=== PATIENT | male | born 1960 | race Caucasian/White ===

== ENCOUNTER 2022-12-24 12:40 | Inpatient (IN) | payer OTHER, MEDICARE ==
[~2022-12-24] VITALS: Ht 167.6 cm; Wt 66.0 kg
[2022-12-24 13:34] LABS: BASOPHILS ABSOLUTE AUTO 0.07 K/mm3 (0.00-0.23); BASOPHILS PERCENT AUTO 1 % (0-2); EOSINOPHILS ABSOLUTE AUTO 0.45 K/mm3 (0.00-0.68); EOSINOPHILS PERCENT AUTO 4 % (0-6); Hematocrit 37.1 % (37.0-53.0); Hemoglobin 12.2 g/dL (13.5-17.5); IMMATURE GRAN ABSOLUTE AUTO 0.06 K/mm3 (0.00-0.10); IMMATURE GRAN PERCENT AUTO 1 % (0-1); LYMPHOCYTES ABSOLUTE AUTO 1.94 K/mm3 (0.84-5.20); LYMPHOCYTES PERCENT AUTO 18 % (21-46); MONOCYTES ABSOLUTE AUTO 0.73 K/mm3 (0.16-1.47); MONOCYTES PERCENT AUTO 7 % (4-13); Mean Corpuscular HGB Conc 32.9 g/dL (31.5-36.5); Mean Corpuscular Volume 97 fL (80-100); NEUTROPHILS ABSOLUTE AUTO 7.28 K/mm3 (1.96-9.15); NEUTROPHILS PERCENT AUTO 69 % (41-73); Platelet Count 126 K/mm3 (150-400); RDW Coefficient Variation 13.3 % (11.7-14.2); RDW Standard Deviation 46.9 fL (35.1-46.3); Red Blood Cell Count 3.81 M/mm3 (4.30-5.90); White Blood Cell Count 10.53 K/mm3 (4.00-11.30)
[2022-12-24 13:53] LABS: Alanine Aminotransfer (ALT/SGP 58 U/L (12-78); Albumin, Blood 3.1 g/dL (3.4-5.0); Albumin/Globulin Ratio 0.7 (0.8-1.8); Alk Phos 138 U/L (50-136); Anion Gap 3 mmol/L (6-16); Aspartate Aminotrans (AST/SGOT 190 U/L (12-37); Bilirubin, Total 1.4 mg/dL (0.1-1.0); Blood Urea Nitrogen 10 mg/dL (8-24); Bun/Creatinine Ratio 18.8 (12.0-20.0); CO2, Blood 32 mmol/L (21-32); Calcium, Blood 10.1 mg/dL (8.5-10.1); Chloride, Blood 100 mmol/L (98-108); Creatinine, Blood 0.53 mg/dL (0.60-1.20); Ethanol (Alcohol), Blood, Med <3 mg/dL; Globulin, Blood 4.5 g/dL (2.2-4.0); Glomerular Filtration Rate 115 (60-); Glucose, Blood 121 mg/dL (70-99); Potassium, Blood 3.2 mmol/L (3.5-5.5); Sodium, Blood 135 mmol/L (136-145); Total Protein, Blood 7.6 g/dL (6.4-8.2)
[2022-12-24 20:31] VITALS: BP 138/101
--- NOTE | 2022-12-24 21:09 | NUR ---
TRANSFER NOTE/ASSUMPTION OF CARE THIS RN RECEIVED REPORT FROM BETO LINO IN THE ED VIA PHONE. PATIENT TRANSFERRED TO UNIT AT 2030. PATIENT TRANSFERRED FROM [facility] TO BED BY STAFF ASSISTANCE D/T WEAKNESS AND PREVIOUS FALL IN THE BATHROOM OF THE ED. PATIENT NOTED TO BE MILDLY ANXIOUS, WITH REPORTED VISUAL HALLUCINATIONS THAT ARE MILD, TREMORS NOTED; MEDICATED WITH 50 OF LIBRIUM. PATIENT ALERT AND ORIENTED AND ABLE TO MAKE NEEDS KNOWN. VITALS STABLE. BED IN LOWEST POSITION AND CALL LIGHT WITHIN REACH, BED ALARM ON
[2022-12-24 23:05] VITALS: BP 128/90
[2022-12-25 03:44] VITALS: BP 131/88
[2022-12-25 04:08] LABS: BASOPHILS PERCENT AUTO 1 % (0-2); EOSINOPHILS ABSOLUTE AUTO 0.43 K/mm3 (0.00-0.68); EOSINOPHILS PERCENT AUTO 4 % (0-6); Hematocrit 32.4 % (37.0-53.0); Hemoglobin 10.7 g/dL (13.5-17.5); IMMATURE GRAN ABSOLUTE AUTO 0.04 K/mm3 (0.00-0.10); IMMATURE GRAN PERCENT AUTO 0 % (0-1); LYMPHOCYTES ABSOLUTE AUTO 2.02 K/mm3 (0.84-5.20); LYMPHOCYTES PERCENT AUTO 19 % (21-46); MONOCYTES ABSOLUTE AUTO 0.82 K/mm3 (0.16-1.47); MONOCYTES PERCENT AUTO 8 % (4-13); Mean Corpuscular HGB 31.6 pg (26.0-34.0); Mean Corpuscular Volume 96 fL (80-100); Mean Platelet Volume 11.5 fL (9.1-12.4); NEUTROPHILS ABSOLUTE AUTO 7.15 K/mm3 (1.96-9.15); NEUTROPHILS PERCENT AUTO 68 % (41-73); Platelet Count 132 K/mm3 (150-400); RDW Coefficient Variation 13.2 % (11.7-14.2); RDW Standard Deviation 45.8 fL (35.1-46.3); Red Blood Cell Count 3.39 M/mm3 (4.30-5.90); White Blood Cell Count 10.56 K/mm3 (4.00-11.30)
[2022-12-25 04:33] LABS: Albumin, Blood 2.8 g/dL (3.4-5.0); Albumin/Globulin Ratio 0.7 (0.8-1.8); Bilirubin, Total 1.3 mg/dL (0.1-1.0); Bun/Creatinine Ratio 11.2 (12.0-20.0); Calcium, Blood 8.5 mg/dL (8.5-10.1); Creatinine, Blood 0.45 mg/dL (0.60-1.20); Globulin, Blood 3.9 g/dL (2.2-4.0); Magnesium, Blood 1.6 mg/dL (1.6-2.4); Potassium, Blood 3.2 mmol/L (3.5-5.5); Total Protein, Blood 6.7 g/dL (6.4-8.2)
--- NOTE | 2022-12-25 04:57 | NUR ---
SHIFT SUMMARY PATIENT CONTINUES TO BE RESTLESS THROUGHOUT THIS SHIFT. ALERT AND ORIENTED 2-3. CONFUSED ABOUT LOCATION AND DATE/TIME AT TIMES. PATIENT WITH CIWA'S OF 8-12 THROUGHOUT THIS SHIFT. REPORTING MILD VISUAL HALLUCINATIONS. NOTED TREMORS. ANXIETY/AGITATION AT TIMES. DISORIENTED AT TIMES. COOPERATIVE WITH CARE. FOLLOWING DIRECTIONS. MEDICATING PER EMAR FOR CIWA'S. SEE EMAR. BED ALARM ON. FREQUENT CHECKS FOR SAFETY. SR/ST ON MONITOR WITH HR 90-100'S. OTHER VITALS STABLE. BED ALARM ON. BED IN LOWEST POSITION AND CALL LIGHT WITHIN REACH. THIS RN WILL CONTINUE TO MONITOR UNTIL SHIFT CHANGE AT 0700.
[2022-12-25 07:55] VITALS: BP 130/85
[2022-12-25 12:12] VITALS: BP 124/82
[2022-12-25 15:17] VITALS: BP 127/88
--- NOTE | 2022-12-25 17:00 | NUR ---
SHIFT SUMMARY This Rn assumed care at 0700. vital signs stable throughout this Rn's shift. tele sinus rhythm 80-100s. patient is alert, oriented to self. this rn has reoriented the patient to correct date, location, place, and situation throughout this shift. patient reports no chest pain/pressure. patient reports no pain. patient reports no shortness of breath. see shift assessment for further detials. patient pulled IV at start of shift and new IV placed. patient placed on oxygen at 2l nc, due to patient oxygen saturations staying at 88%. oxygen placed at 1650. MD Barrientos notified and order placed. see orders ciwa has been between 6-15, and has been reassessed every two hours and as needed. medicated as needed. patient takes medications with applesauce or pudding best, and does better without a straw. Plan of care is up to date. call light within reach and bed in lowest position with alarm on.
[2022-12-25 19:58] VITALS: BP 130/82
--- NOTE | 2022-12-25 21:26 | NUR ---
ASSUMPTION OF CARE THIS RN ASSUMED CARE OF PATIENT AT 1900. REPORT TAKEN FROM JOHNNA LINO. PATIENT SLEEPING AT TIME OF SHIFT CHANGE. PATIENT WOKE UP AROUND 1999 AND WAS ABLE TO TAKE MEDICATIONS AND ANSWER QUESTIONS. CIWA 9 AT THAT TIME; SEE ASSESSMENT. MEDICATED PER EMAR. BP STABLE. PLACED ON 2L VIA NC D/T DESATTING TO 88-89% ON RA WHILE SLEEPING. AFEBRILE. SR/ST ON MONITOR WITH HR 80-100'S. CONDOM CATHETER IN PLACE AND DRAINING TO GRAVITY. PPP. CURRENTLY PATIENT APPEARS TO BE RESTING WITH CIWA OF 5 AT TIME OF WRITING THIS NOTE; SEE ASSESSMENT. PATIENT ABLE TO BE AROUSED BY PHYSICAL/VERBAL STIMULI. LETHARGIC AT TIMES. BED ALARM ON. PATIENT WEAK THROUGHOUT. REPOSITIONING Q2HRS. BED IN LOWEST POSITION AND CALL LIGHT WITHIN REACH.
[2022-12-25 23:04] VITALS: BP 129/82
[2022-12-26 04:14] VITALS: BP 116/81
[2022-12-26 04:25] LABS: BASOPHILS ABSOLUTE AUTO 0.13 K/mm3 (0.00-0.23); BASOPHILS PERCENT AUTO 1 % (0-2); EOSINOPHILS ABSOLUTE AUTO 0.47 K/mm3 (0.00-0.68); EOSINOPHILS PERCENT AUTO 4 % (0-6); Hematocrit 35.5 % (37.0-53.0); Hemoglobin 11.7 g/dL (13.5-17.5); IMMATURE GRAN ABSOLUTE AUTO 0.04 K/mm3 (0.00-0.10); IMMATURE GRAN PERCENT AUTO 0 % (0-1); LYMPHOCYTES PERCENT AUTO 17 % (21-46); MONOCYTES ABSOLUTE AUTO 1.27 K/mm3 (0.16-1.47); MONOCYTES PERCENT AUTO 11 % (4-13); Mean Corpuscular HGB 31.8 pg (26.0-34.0); Mean Corpuscular Volume 97 fL (80-100); Mean Platelet Volume 10.9 fL (9.1-12.4); NEUTROPHILS ABSOLUTE AUTO 7.86 K/mm3 (1.96-9.15); NEUTROPHILS PERCENT AUTO 67 % (41-73); Platelet Count 165 K/mm3 (150-400); RDW Coefficient Variation 13.5 % (11.7-14.2); RDW Standard Deviation 47.8 fL (35.1-46.3); Red Blood Cell Count 3.68 M/mm3 (4.30-5.90); White Blood Cell Count 11.77 K/mm3 (4.00-11.30)
[2022-12-26 04:49] LABS: Albumin, Blood 2.8 g/dL (3.4-5.0); Albumin/Globulin Ratio 0.7 (0.8-1.8); Bilirubin, Total 1.1 mg/dL (0.1-1.0); Bun/Creatinine Ratio 3.7 (12.0-20.0); Calcium, Blood 8.8 mg/dL (8.5-10.1); Creatinine, Blood 0.54 mg/dL (0.60-1.20); Globulin, Blood 4.2 g/dL (2.2-4.0); Potassium, Blood 3.4 mmol/L (3.5-5.5)
--- NOTE | 2022-12-26 05:00 | NUR ---
SHIFT SUMMARY PATIENT WITH CIWA'S 11-12 AT TIMES BUT HAS BEEN RESTING COMFORTABLY FOR MOST OF THE NIGHT WITH NOTED LESS NEED FOR MEDICATIONS THAN PREVIOUS NIGHT WITH THIS RN. PATIENT IS LETHARGIC FOR MOST OF THE SHIFT BUT ABLE TO BE AROUSED WITH VERBAL STIMULI. PATIENT AT TIMES CAN ANSWER ORIENTATION QUESTIONS APPROPRIATELY BUT AT OTHER TIMES IS CONFUSED ABOUT DATE/TIME/PLACE. PATIENT HAS BEEN COOPERATIVE WITH CARE. SEE ASSESSMENT FOR CIWA. SEE EMAR. CONDOM CATH IN PLACE DRAINING YELLOW URINE. D5W1/2NS KCL INFUSING PER EMAR. REPOSITIONING Q2HRS. PLACED ON 2L VIA NC WHILE SLEEPING D/T DESATTING. OTHER VITALS STABLE. BED IN LOWEST POSITION AND CALL LIGHT WITHIN REACH. THIS RN WILL CONTINUE TO MONITOR UNTIL SHIFT CHANGE AT 0700.
[2022-12-26 07:33] VITALS: BP 127/84
--- NOTE | 2022-12-26 10:44 | NUR ---
CARE ASSUMPTION This RN assumed care at 0700. vital signs stable. tele sr/st 80-100. spo2 at 90% on 2l nc. patient is lethargic, but is able to answer all questions and has intermittent period of alertness. patient knew he was at the hospital/town/year. patient mumbles speech and is difficult to understand. patient reports no shortness of breath. coarse lung sounds throughout. patient has a moist, weak productive cough, but patient is unable to clear secretions or cough the sputum out. this rn has suctioned multiple times this morning small thick rowe secretions. patient reports no pain. condom cath in place for incontiences due to current situation. see shift assessment for further information. This RN did a bedside swallow eval and the patient failed. An order for speech was placed. Speech in to see patient, and this RN was in the room. This RN was suctioning and patient began to vomit and this RN suction food into the suction container. Patient oxygen demands increased and patient hanging at 88%, spo2 increased to 3l nc. Patient made strict NPO. This RN called MD Barrientos and notifed her of the patient increase in oxygen and NPO status. Bed bath done, linen change, and morning oral care. condom cath changed this am. Plan of care is up to date. bed is in lowest position with call ligth within reach and bed alarm on. significant other updated on patients current situation and the plan of care.
[2022-12-26 11:33] VITALS: BP 97/69
[2022-12-26 15:53] VITALS: BP 114/73
--- NOTE | 2022-12-26 17:58 | NUR ---
SHIFT SUMMARY Patient ciwas have been 4-8. patient has been sleeping majority of the day. this rn has suctioned the patient throughout the shift. no acute changes. vital signs stable. spo2 >90% on 3l nc. tele sinus 80s. patient remains NPO. physical therapy in to see patient today. plan of care is up to date.
[2022-12-26 19:36] VITALS: BP 126/85
--- NOTE | 2022-12-26 19:42 | NUR ---
ASSUMED PT CARE FORM JOHNNA LINO ON . PT LYING IN BED WITH EYES CLOSED, SNORING LOUDLY. ABLE TO AROUSE WITH VOICE. PT REMAINS DROWSY BUT IS ABLE TO ANSWER QUESTIONS. WORDS MUMBLED AND DIFFICULT TO UNDERSTAND BUT ABLE TO TELL ORIENTATION X 3. DOES NOT APPEAR IN ANY DISTRESS AT THIS TIME. RESPIRATIONS EVEN AND UNLABORED. VITAL SIGNS STABLE. O2 SATS 90-95% ON 3 LPM. HR IS RN IN THE 90'S. CIWAH SCORED RECORDED IN CHART. WILL CONTINUE TO MONITOR. FLUIDS INFUSING ORDERD. CONDOM CATHETER DRAINING CLEART, YELLOW URINE WITHOUT DIFFICULTY. CALL LIGHT IN REACH. BED ALARM ON.
[2022-12-27 04:24] VITALS: BP 130/85
--- NOTE | 2022-12-27 06:35 | NUR ---
SHIFT SUMMARY: PT COINTINUES TO BE SOMNULENT THROUGHOUT NIGHT, MILD INCREASED ALERTNESS THIS A.M., OBSERVING EYES OPEN ON ENTERING ROOM. PT CONTINUES TO TO ORIENTED. CIWAH'S 1. PLEASANT AND COOPERATIVE. SUCTION AND MOUTH CARE GIVEN REGULARLY. PT CONTINUES TO HAVE WET COUGH WITHOUT COUGHING ANYTHING UP. O2 SATS > 92% ON 2-3LPM. HR SR IN 90'S. REPOSITIONED FOR COMFORT. CONDOM CATHETER CHANGED DUE TO LEAKAGE. CALL LIGHT IN REACH. BED ALARM ON.
[2022-12-27 07:06] VITALS: BP 129/83
[2022-12-27 08:45] LABS: Bun/Creatinine Ratio 7.6 (12.0-20.0); Calcium, Blood 8.8 mg/dL (8.5-10.1); Creatinine, Blood 0.53 mg/dL (0.60-1.20); Potassium, Blood 3.6 mmol/L (3.5-5.5)
[2022-12-27 11:26] VITALS: BP 115/75
--- NOTE | 2022-12-27 12:14 | NUR ---
PT A&OX4. SPEECH IS SLOW AND HARD TO UNDERSTAND. LUNG SOUNDS COARSE THROUGHOUT. WET/MOIST SOUNDING COUGH, PT ABLE TO PRODUCE VERY LITTLE SPUTUMN. PT ON 3L O2 NC, MAINTING SAT ABOVE 94%. HR SR 80'S-90'S. PT DENIES SOB OR CHEST PAIN. GENERALIZED WEAKNESS THROUGHOUT. CONDOM CATH IN PLACE AND DRAINING TO GRAVITY. IV THAT WAS IN R FOREARM WAS LEAKING, REMOVED AND REPLACED. INSERTED NEW 22G IV INTO L FOREARM. PT STATED 7/10 PAIN IN FEET, LEGS, BACK, NECK, CHRONIC. PO LIQUID TYLENOL #3 WAS GIVEN PER OCT. SPEECH THERAPIST CLEARED PT FOR THIN LIQUIDS. PT DOES BEST WITH TINY SIPS. ORAL CARE PERFORMED BEFORE SITTING PT UP, ORDERED PER SPEECH THERAPIST. WILL MEJIA HELPED PT UP IN CHAIR VIA LIFT, PER PHYSICAL THERAPY REQUEST. PT RESTING UPRIGHT IN RECLINER WATCHING TV, WITH CALL LIGHT WITHIN REACH.
[2022-12-27 15:24] VITALS: BP 113/82
--- NOTE | 2022-12-27 17:55 | NUR ---
NO ACUTE CHANGES, SEE PREVIOUS NOTE. PT REMAINS ON 3L O2 NC, SATING ABOVE 94%, NO REPORTS OF SOB. HR SR 80'S-90'S, DENIES CHEST PAIN/PRESSURE. PT RESTING IN BED WATCHING TV, CALL LIGHT WITHIN REACH.
--- NOTE | 2022-12-27 18:07 | NUR ---
BED ALARM REMAINS IN PLACE. PATIENT TAKING SMALL SIPS OF WATER WITH ASSISTANCE AND PER SPEECH THERAPY ORDERS. OCCASIONAL COUGHING. VITAL SIGNS REMAIN STABLE. PATIENT ABLE TO CALL AND VERBALIZE NEEDS. Q2 TURNING. CONDOM CATH REMAINS IN PLACE. THIS RN UPDATED WILLIAM TODAY. PLAN FOR WILLIAM TO VISIT TOMORROW. CIWA SCORES RANGE FROM 2-4. THIS RN HAS REVIEWED ALL TRACTOR CRANE ENGINEER DOCUMENTATION.
[2022-12-27 19:49] VITALS: BP 105/76
--- NOTE | 2022-12-27 20:14 | NUR ---
ASSUMED PT CARE FROM WILL LINO ON DAYSHI. PT SITTING UP IN BED WATCHING TV, EYES OPEN. A&OX4, SPEECH SLURRED, DIFFICULT TO UNDERSTAND BUT ABLE TO MAKE NEEDS KNOWN. REPORTS FEELING SOB STATING "I AM EMPHASEMIA", STATES SOB IS AT BASELINE FOR HIM. O2 SATS 95% ON 2 LPM NC. DENIES CHEST PAIN. REPORTS GENERLIZED PAIN AT 6/10, REPOSITIONED FOR IMPROVED PAIN MANAGEMENT. ASSISTED PT TO USED PHONE TO CALL HIS SIGNIFICANT OTHER. CALL LIGHT IN REACH. BED ALARM ON.
[2022-12-28 04:07] VITALS: BP 118/81
[2022-12-28 04:16] LABS: BASOPHILS ABSOLUTE AUTO 0.07 K/mm3 (0.00-0.23); BASOPHILS PERCENT AUTO 1 % (0-2); EOSINOPHILS ABSOLUTE AUTO 0.34 K/mm3 (0.00-0.68); EOSINOPHILS PERCENT AUTO 4 % (0-6); Hematocrit 38.7 % (37.0-53.0); Hemoglobin 12.5 g/dL (13.5-17.5); IMMATURE GRAN ABSOLUTE AUTO 0.06 K/mm3 (0.00-0.10); IMMATURE GRAN PERCENT AUTO 1 % (0-1); LYMPHOCYTES PERCENT AUTO 25 % (21-46); MONOCYTES ABSOLUTE AUTO 1.05 K/mm3 (0.16-1.47); MONOCYTES PERCENT AUTO 13 % (4-13); Mean Corpuscular HGB 31.6 pg (26.0-34.0); Mean Corpuscular HGB Conc 32.3 g/dL (31.5-36.5); Mean Corpuscular Volume 98 fL (80-100); NEUTROPHILS ABSOLUTE AUTO 4.36 K/mm3 (1.96-9.15); NEUTROPHILS PERCENT AUTO 55 % (41-73); RDW Coefficient Variation 13.4 % (11.7-14.2); RDW Standard Deviation 47.4 fL (35.1-46.3); Red Blood Cell Count 3.96 M/mm3 (4.30-5.90); White Blood Cell Count 7.88 K/mm3 (4.00-11.30)
[2022-12-28 04:18] LABS: Mean Platelet Volume 10.5 fL (9.1-12.4); Platelet Count 192 K/mm3 (150-400)
[2022-12-28 04:32] LABS: Albumin, Blood 2.7 g/dL (3.4-5.0); Albumin/Globulin Ratio 0.7 (0.8-1.8); Bun/Creatinine Ratio 5.5 (12.0-20.0); Calcium, Blood 8.4 mg/dL (8.5-10.1); Creatinine, Blood 0.54 mg/dL (0.60-1.20); Globulin, Blood 4.1 g/dL (2.2-4.0); Potassium, Blood 4.1 mmol/L (3.5-5.5); Total Protein, Blood 6.8 g/dL (6.4-8.2)
--- NOTE | 2022-12-28 06:05 | NUR ---
SHIFT SUMMARY: PT DROWSY BUT EASILY AROUSABLE. SLEPT MAJORITY OF NIGHT WITHOUT SIGNS OF DISTRESS. VITAL SIGNS STABLE. REPOSITION FOR COMFORT. CALL LIGHT IN REACH. BED ALARM ON.
[2022-12-28 07:15] VITALS: BP 117/82
--- NOTE | 2022-12-28 07:53 | NUR ---
AM NOTE: PATIENT WAKES THIS MORNING TO VOICE AND TOUCH. SPEECH BECOMING MORE CLEAR COMPARED TO YESTERDAY DAY SHIFT. PERRLA. DENIES NUMBNESS/TINGLING. NO FACIAL DROOP NOTED. 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 WEAKNESS NOTED THROUGHOUT. Q2 TURNING. USING LEFT TO RECLINER PER PHYSICAL THERAPY. SEE SPEECH THERAPY ORDERS. THIN LIQUIDS. PATIENT IMPROVING WITH TAKING SMALL SIPS. ORAL CARE Q4. ON ROOM AIR THIS AM SATING MID 90'S. LUNGS SOUNDING COARSE AND DIM IN BASES. WET/LOOSE/WEAK COUGH. SUCTION AT BEDSIDE. PATIENT ENCOURAGED TO TAKE DEEP BREATHS. TELE SHOWING SR WITH HR 70-80'S. BP STABLE. DENIES CHEST PAIN/PRESSURE/PALPITATIONS. IV FLUIDS INFUSING PER EMAR. PPP. NO EDEMA NOTED. DENIES ABDOMINAL PAIN/NAUSEA. ATTENDS IN PLACE. USING URINAL WITH ASSISTANCE. BED ALARM IN PLACE. INTERMITTENTLY USING CALL LIGHT. SKIN OVERALL CLEAN AND DRY. REDNESS NOTED TO COCCYX, NO OPEN AREAS, MEPILEX IN PLACE, Q2 TURNING. REDNESS/EXCORATION TO GROIN, CLEANED AND POWDER APPLIED. BRUISING SCATTERED.
--- NOTE | 2022-12-28 09:39 | NUR ---
UPDATE: DR. LOCKETT BY. PATIENT UP IN RECLINER POST BED BATH AND BSC TRIP. NEW ORDERS FOR THIS RN TO PLACE INCULDED TRANSFER TO MEDICAL, DC TELE, AND DC IV FLUIDS AFTER CURRENT BAG FINISHES. ORDERS IN PLACE. NO SPEECH THERAPY IN HOUSE TODAY. PATIENT STRENGTH HAS INCREASED. WILL ATTEMPT PUREE TYPE FOODS AND ASSESS SWALLOW.
--- NOTE | 2022-12-28 10:37 | NUR ---
TRANSFER TO MEDICAL AT THIS TIME. PATIENT DAUGHTER AND GRANDDAUGHTER IN TO VISIT. CALLED AND UPDATED ON TRANSFER. REPORT GIVEN TO ALANIS. NO ACUTE CHANGES, SEE PREVIOUS NOTES. DAUGHTER BROUGHT IN PATIENT BELONGINGS FROM [employer].
[2022-12-28 10:42] VITALS: BP 95/63
--- NOTE | 2022-12-28 10:45 | NUR ---
pt arrived to 309 via recliner, family in room, a/ox3, flat affect, states he's doing ok, lungs are clear with course bases, on r/a at this time, reports a wet loose cough, hrr, no edema noted, ppp+1, cap refill <3 sec, vs stable, afebrile, iv site to lfa site is clear and patent, btx4, abd flat soft nontender, voids without diff, skin has mepilex to coccyx and excoriated bunny area other jay c/w/d, eva alvarez call light in reach.
[2022-12-28 14:58] VITALS: BP 127/89
--- NOTE | 2022-12-28 18:14 | NUR ---
pt laying in bed he was disapointed in dinner being clears still, and would like to advance, spoke with Dr. Barrientos, would be safer to wait until speech sees him in the am, explained that to him, he verbalized understanding, continues to need direction and reminders to not get up without help, he is very weak and unsteady, but thinks he can walk into the bathroom, bed alarm has been activated, call light in reach.
[2022-12-28 19:36] VITALS: BP 108/66
[2022-12-29 02:22] VITALS: BP 106/81
[2022-12-29 05:37] LABS: BASOPHILS ABSOLUTE AUTO 0.11 K/mm3 (0.00-0.23); BASOPHILS PERCENT AUTO 1 % (0-2); EOSINOPHILS ABSOLUTE AUTO 0.42 K/mm3 (0.00-0.68); EOSINOPHILS PERCENT AUTO 4 % (0-6); Hemoglobin 11.8 g/dL (13.5-17.5); IMMATURE GRAN ABSOLUTE AUTO 0.04 K/mm3 (0.00-0.10); IMMATURE GRAN PERCENT AUTO 0 % (0-1); LYMPHOCYTES ABSOLUTE AUTO 1.99 K/mm3 (0.84-5.20); LYMPHOCYTES PERCENT AUTO 21 % (21-46); MONOCYTES PERCENT AUTO 18 % (4-13); Mean Corpuscular HGB 31.3 pg (26.0-34.0); Mean Corpuscular HGB Conc 31.9 g/dL (31.5-36.5); Mean Corpuscular Volume 98 fL (80-100); NEUTROPHILS ABSOLUTE AUTO 5.39 K/mm3 (1.96-9.15); NEUTROPHILS PERCENT AUTO 56 % (41-73); Platelet Count 275 K/mm3 (150-400); RDW Coefficient Variation 13.2 % (11.7-14.2); RDW Standard Deviation 47.7 fL (35.1-46.3); Red Blood Cell Count 3.77 M/mm3 (4.30-5.90); White Blood Cell Count 9.65 K/mm3 (4.00-11.30)
[2022-12-29 06:05] LABS: Albumin, Blood 2.8 g/dL (3.4-5.0); Albumin/Globulin Ratio 0.7 (0.8-1.8); Bilirubin, Total 1.2 mg/dL (0.1-1.0); Bun/Creatinine Ratio 5.3 (12.0-20.0); Calcium, Blood 9.1 mg/dL (8.5-10.1); Creatinine, Blood 0.57 mg/dL (0.60-1.20); Globulin, Blood 4.2 g/dL (2.2-4.0); Potassium, Blood 3.5 mmol/L (3.5-5.5)
[2022-12-29 07:35] VITALS: BP 121/77
--- NOTE | 2022-12-29 16:44 | NUR ---
SHIFT SUMMARY: NO ACUTE EVENTS. C/O CHRONIC LOW BACK PAIN; STARTED ON TORADOL PO WHICH SEEMS TO WORK WELL (PT SLEEPING AT TIME OF THIS NOTE). ON ROOM AIR, LUNG SOUNDS COARSE THROUGHOUT. DIET ADVANCED FROM CLEAR LIQ TO REGULAR PER SLT. WORKED WITH PT/OT TODAY; AMBULATED WITH FWW BUT FATIGUED QUICKLY AND IS WEAK. CM NOTE FROM LAST WEEK STATED THAT PT'S S.O. WAS HOPING PT COULD D/C BACK TO HIS HOME IN [place] P[place] WITH HH.
[2022-12-29 17:48] VITALS: BP 130/84
[2022-12-29] MEDS ORDERED: C COMPLEX1000 M1 PO (20:50)
[2022-12-29] MEDS ORDERED: ONE DAILY ESS400 MCG PO (20:50)
[2022-12-29] MEDS ORDERED: TRAM50 PO (20:51)
[2022-12-29] MEDS ORDERED: FERROUS GLUCON324 M3 PO (20:52)
[2022-12-29] MEDS ORDERED: PREGABALIN25 MG PO (20:52)
[2022-12-29] MEDS ORDERED: NICORETTE4 M1 BC (20:53)
[2022-12-29] MEDS ORDERED: NICO21TP TOP (20:53)
[2022-12-29] MEDS ORDERED: Naltrexone HCl50 MG PO (20:54)
[2022-12-29] MEDS ORDERED: Vistaril50 MG PO (20:55)
[2022-12-29] MEDS ORDERED: NEURONTIN300 MG PO (20:56)
[2022-12-29] MEDS ORDERED: CATAPRES0.1 MG PO (20:58)
[2022-12-29] MEDS ORDERED: METOPROLOL TART25 MG PO (20:58)
[2022-12-29 21:18] VITALS: BP 135/85
[2022-12-30 02:07] VITALS: BP 145/80
[2022-12-30 07:15] VITALS: BP 115/78
[2022-12-30] MEDS ORDERED: CODACE30 PO (11:47)
--- NOTE | 2022-12-30 13:59 | NUR ---
PATIENT DISCHARGED TO HOME WITH HOME HEALTH, DRIVEN HOME BY HIS DAUGHTER. VERBALIZED UNDERSTANDING OF D/C INSTRUCTIONS, WAS HANDED HARD COPY RX FOR TYLENOL #3. OFF UNIT AT 1320 VIA W/C. NO PERSONAL BELONGINGS LEFT BEHIND IN ROOM.
== END 2022-12-30 13:57 | disposition home health service (06) | DRG 897 ==
LOC: ER 12:40 → PCU 18:41 → MEDS 18:41 → PCU 20:09 → MEDS 12-28 10:38 → ENPENDDIS 12-30 10:37 → MEDS 12-30 13:57
PROVIDERS: Internal Medicine; Nurse Practitioner Acute Care; Physician Assistant; ADMIT Internal Medicine
PROC: HZ2ZZZZ Detoxification Services for Substance Abuse Treatment (ICD-10-PCS; principal; 2022-12-24)
DX: F10.239 Alcohol dependence with withdrawal, unspecified (principal); S09.90XA Unspecified injury of head, initial encounter; G62.9 Polyneuropathy, unspecified; G89.29 Other chronic pain; E87.6 Hypokalemia; R09.02 Hypoxemia; Y90.0 Blood alcohol level of less than 20 mg/100 ml; R29.6 Repeated falls; F17.210 Nicotine dependence, cigarettes, uncomplicated; M54.50 Low back pain, unspecified; K70.10 Alcoholic hepatitis without ascites; J44.9 Chronic obstructive pulmonary disease, unspecified; W01.198A Fall on same level from slipping, tripping and stumbling with subsequent striking against other object, initial encounter; Z88.8 Allergy status to other drugs, medicaments and biological substances
CPT/HCPCS: 36415; 70450; 71045; 80048; 80053; 83735; 85025; 92526; 92610; 93005; 93010; 94760; 96365; 96366; 96375; 97110; 97112; 97116; 97162; 97166; 97530; 97535; 99285-25; A9270; G0480; J1650; J2060; J3411; J3475; J7030